=== PATIENT | male | born 1990 ===

== ENCOUNTER 2022-10-12 18:11 | Inpatient (IN) | payer OTHER ==
[~2022-10-12] VITALS: Ht 185.4 cm; Wt 137.0 kg
[2022-10-12] MEDS ORDERED: DEXTROSE 50%-WATER 50 ML DISP.SYRIN IV ONE ×2 (18:30→19:00)
[2022-10-12 18:35] LABS: BASOPHILS % (AUTO) 0.4 % (0.0-5.0); EOSINOPHILS % (AUTO) 1.3 % (0.0-8.0); LYMPHOCYTES % (AUTO) 29.4 % (21.0-51.0); MEAN CORPUSCULAR HEMOGLOBIN 25.2 pg (27.0-33.0); MEAN CORPUSCULAR HGB CONC 31.1 g/dL (32.0-36.0); MEAN CORPUSCULAR VOLUME 80.8 fL (79-99); MONOCYTES % (AUTO) 10.8 % (3.0-13.0); NEUTROPHILS % (AUTO) 57.9 % (40.0-77.0); PLATELET COUNT (AUTO) 295 K/uL (130-400); RED BLOOD CELL COUNT(AUTO) 4.33 MIL/uL (4.50-6.20); RED CELL DISTRIBUTION WIDTH 14.6 % (11.0-15.5); WHITE BLOOD COUNT (AUTO) 5.4 K/uL (4.8-10.8)
[2022-10-12 18:50] LABS: ALBUMIN 2.2 g/dL (3.5-5.0); CREATININE 1.2 mg/dL (0.5-1.5); TOTAL PROTEIN, SERUM 5.4 g/dL (6.0-8.3)
[2022-10-12 18:56] LABS: POTASSIUM 2.5 mmol/L (3.5-5.1)
[2022-10-12] MEDS ORDERED: POTASSIUM CHLORIDE 20MEQ/100ML 100 ML IV ONE (18:56)
[2022-10-12 19:00] LABS: APPEARANCE,URINE CLOUDY (CLEAR); BILIRUBIN,URINE NEGATIVE (NEGATIVE); COLOR,URINE YELLOW (YELLOW); GLUCOSE, URINE (UA) 200 mg/dL (NEGATIVE); KETONES,URINE 10 mg/dL (NEGATIVE); LEUKOCYTE ESTERASE ,URINE 25 Leu/uL (NEGATIVE); NITRATE,URINE NEGATIVE (NEGATIVE); PH,URINE 6.5 (5.0-8.0); PROTEIN,URINE 300 mg/dL (NEGATIVE)
[2022-10-12] MEDS ORDERED: 0.9%NACL 1000ML 1,000 ML IV ONE ×2 (19:00)
[2022-10-12 19:04] LABS: BACTERIA,URINE RARE /HPF (None Seen); MUCUS,URINE RARE LPF (None Seen); OTHER CASTS, URINE 1 /LPF (None Seen); SQUAMOUS EPITHELIAL CELL,UR MOD /HPF (0-2); URIC ACID CRYSTALS,URINE FEW /LPF (None Seen)
[2022-10-12] MEDS ORDERED: POTASSIUM CHLORIDE 20 MEQ/100 ML BAG IV STA (19:18)
[2022-10-12 19:32] LABS: AMPHET/METH SCREEN,URINE NEGATIVE (NEGATIVE); BARBITURATE SCREEN, URINE NEGATIVE (NEGATIVE); BENZODIAZEPINES SCREEN,URINE NEGATIVE (NEGATIVE); CANNABINOID SCREEN,URINE NEGATIVE (NEGATIVE); COCAINE SCREEN,URINE NEGATIVE (NEGATIVE); OPIATE SCREEN,URINE NEGATIVE (NEGATIVE); PHENCYCLIDINE SCREEN,URINE NEGATIVE (NEGATIVE)
[2022-10-12] MEDS ORDERED: DEXTROSE 10%-WATER 1,000 ML IV ONE (20:30)
[2022-10-12] MEDS ORDERED: POTASSIUM CHLORIDE 10% ELIXIR 20 MEQ/15 ML UDCUP PO PRN (22:00)
[2022-10-12] MEDS ORDERED: ACETAMINOPHEN 325 MG TAB PO PRN ×2 (22:00)
[2022-10-12] MEDS ORDERED: GLUCAGON 1MG KIT 1 MG ML IM PRN (22:00)
[2022-10-12] MEDS ORDERED: MAGNESIUM 2GM PREMIX 50ML 50 ML IV SCH (22:00)
[2022-10-12] MEDS ORDERED: ONDANSETRON 4MG INJ IV PRN (22:00)
[2022-10-12] MEDS ORDERED: MORPHINE 4 MG SYG IV PRN (22:00)
[2022-10-12] MEDS ORDERED: ACETAMINOPHEN WITH CODEINE 1 TAB TAB PO PRN (22:00)
[2022-10-12] MEDS ORDERED: LACTULOSE 20 GM/30 ML UDCUP PO PRN (22:00)
[2022-10-12] MEDS ORDERED: POTASSIUM CHLORIDE 20MEQ/100ML 100 ML IV PRN (22:00)
[2022-10-12] MEDS ORDERED: KCL 20 MEQ ERTAB PO PRN (22:00)
[2022-10-12] MEDS ORDERED: DIPHENHYDRAMINE HCL 25 MG CAPSULE PO PRN (22:00)
[2022-10-12] MEDS ORDERED: MAG/ALUM/SIMETH 30 ML UDCUP PO PRN (22:00)
[2022-10-12] MEDS ORDERED: LIDOCAINE HCL-MPF 1% 2ML VIAL IV PRN (22:00)
[2022-10-12] MEDS ORDERED: DEXTROSE 50%-WATER 50 ML DISP.SYRIN IV PRN (22:00)
[2022-10-12 22:39] LABS: HEMOGLOBIN A1C 11.4 % (4.0-6.0)
[2022-10-12] MEDS: CEFTRIAXONE 1G VIAL IVP SCH (23:45)
[2022-10-13] MEDS ORDERED: LISI40TA9 PO (05:37)
[2022-10-13] MEDS ORDERED: ATOR10 PO (05:37)
[2022-10-13] MEDS ORDERED: GABA600T10 PO ×2 (05:37)
[2022-10-13] MEDS ORDERED: TRAM50TA4 PO (05:37)
[2022-10-13] MEDS ORDERED: AMOX875T2 PO (05:37)
[2022-10-13] MEDS ORDERED: INSLAN SQ ×2 (05:37)
[2022-10-13] MEDS ORDERED: DULO60CA64 PO (05:37)
[2022-10-13 06:27] VITALS: BP 146/78
[2022-10-13 08:54] VITALS: BP 148/62
[2022-10-13] MEDS: FAMOTIDINE 20MG VIAL IV SCH (09:48)
[2022-10-13] MEDS: HEPARIN 5,000 UNIT VIAL SQ SCH ×3 (09:54→20:44)
[2022-10-13 10:15] LABS: HEMATOCRIT 40.9 % (42-54); MEAN CORPUSCULAR HEMOGLOBIN 24.7 pg (27.0-33.0); MEAN CORPUSCULAR HGB CONC 30.6 g/dL (32.0-36.0); MEAN CORPUSCULAR VOLUME 80.7 fL (79-99); PLATELET COUNT (AUTO) 307 K/uL (130-400); RED BLOOD CELL COUNT(AUTO) 5.07 MIL/uL (4.50-6.20); RED CELL DISTRIBUTION WIDTH 15.1 % (11.0-15.5); WHITE BLOOD COUNT (AUTO) 6.9 K/uL (4.8-10.8)
[2022-10-13 10:24] LABS: MAGNESIUM 1.7 mg/dL (1.80-2.40); POTASSIUM 4.3 mmol/L (3.5-5.1)
[2022-10-13 11:43] VITALS: BP 145/76
[2022-10-13 16:22] VITALS: BP 147/81
[2022-10-13 19:00] VITALS: BP 123/74
[2022-10-13] MEDS ORDERED: INSULIN HUMULIN R 100 UNIT/ML 3ML SQ ONE (19:00)
[2022-10-13] MEDS: CEFTRIAXONE 1G VIAL IVP SCH (20:44)
[2022-10-13] MEDS: INSULIN HUMULIN R 100 UNIT/ML 3ML SQ SCH (20:44)
[2022-10-14] VITALS: BP 103/57
[2022-10-14 04:00] VITALS: BP 130/70
[2022-10-14 05:30] LABS: HEMATOCRIT 37.8 % (42-54); MEAN CORPUSCULAR HEMOGLOBIN 25.2 pg (27.0-33.0); MEAN CORPUSCULAR HGB CONC 31.5 g/dL (32.0-36.0); MEAN CORPUSCULAR VOLUME 80.1 fL (79-99); RED BLOOD CELL COUNT(AUTO) 4.72 MIL/uL (4.50-6.20); RED CELL DISTRIBUTION WIDTH 14.6 % (11.0-15.5); WHITE BLOOD COUNT (AUTO) 4.1 K/uL (4.8-10.8)
[2022-10-14 05:56] LABS: ALBUMIN 2.7 g/dL (3.5-5.0); CREATININE 1.3 mg/dL (0.5-1.5); POTASSIUM 4.8 mmol/L (3.5-5.1)
[2022-10-14] MEDS: INSULIN HUMULIN R 100 UNIT/ML 3ML SQ SCH ×2 (06:11→12:48)
[2022-10-14 07:43] VITALS: BP 147/81
[2022-10-14] MEDS: FAMOTIDINE 20MG VIAL IV SCH (08:40)
[2022-10-14] MEDS: HEPARIN 5,000 UNIT VIAL SQ SCH (08:49)
[2022-10-14] MEDS ORDERED: INSULIN GLARGINE 100 UNITS/ML 10 ML VIAL SQ SCH (09:00)
[2022-10-14] MEDS ORDERED: INSU100I15 SQ (10:27)
[2022-10-14] MEDS ORDERED: INSLAN SQ (10:27)
[2022-10-14 11:20] VITALS: BP 159/89
[2022-10-14] MEDS ORDERED: INSULIN HUMULIN R 100 UNIT/ML 3ML SQ SCH (11:30)
[2022-10-14] MEDS ORDERED: GABAPENTIN 300 MG CAPSULE PO SCH ×2 (16:30→21:00)
[2022-10-14] MEDS ORDERED: ATORVASTATIN 10 MG TABLET PO SCH (21:00)
[2022-10-15] MEDS ORDERED: LISINOPRIL 40 MG TABLET PO SCH (09:00)
[2022-10-15] MEDS ORDERED: DULOXETINE HCL 30 MG CAP PO SCH (09:00)
== END 2022-10-14 17:14 | disposition home or self-care (01) | DRG 638 ==
LOC: EDH 18:11 → OBSVTOIN 18:12 → EDHIP 18:12 → 3CH 10-13 04:45
PROVIDERS: ADMIT Internal Medicine; ATTEND Internal Medicine
DX: E11.649 Type 2 diabetes mellitus with hypoglycemia without coma (principal); N39.0 Urinary tract infection, site not specified; Z68.44 Body mass index [BMI] 60.0-69.9, adult; E87.6 Hypokalemia; E83.42 Hypomagnesemia; E66.01 Morbid (severe) obesity due to excess calories; E16.0 Drug-induced hypoglycemia without coma; E83.51 Hypocalcemia; G47.33 Obstructive sleep apnea (adult) (pediatric); I10 Essential (primary) hypertension; Z79.4 Long term (current) use of insulin; Z87.891 Personal history of nicotine dependence
CPT/HCPCS: 36415; 80048; 80053; 80305; 81001; 82948; 83036; 83605; 83735; 85025; 85027; 87040; 87088; 96361; 96374; 96376; G0378; J0696; J1644; J1815; J3480; J3490; J7070